=== PATIENT | female | born 1970 | race Caucasian/White ===

== ENCOUNTER 2018-01-08 06:34 | Day surgery (SDC) | payer MEDICAID ==
[2018-01-08 07:09] LABS: ADD MAN DIFF? NO
[2018-01-08 07:11] LABS: BASOPHILS % 0.3 % (0.0-2.0); EOSINOPHILS # 0.2 10^3/ul (0.0-0.5); EOSINOPHILS % 1.9 % (0.0-7.0); HEMATOCRIT 34.1 % (37.0-47.0); HEMOGLOBIN 11.4 g/dl (12.0-16.0); LYMPHOCYTES # 2.9 10^3/ul (0.8-2.9); LYMPHOCYTES % 33.5 % (15.0-51.0); MEAN CORPUSCULAR HEMOGLOBIN 28.6 pg (29.0-33.0); MEAN CORPUSCULAR HGB CONC 33.4 g/dl (32.0-37.0); MEAN CORPUSCULAR VOLUME 85.5 fl (82.0-101.0); MEAN PLATELET VOLUME 9.9 fl (7.4-10.4); MONOCYTE # 0.7 10^3/ul (0.3-0.9); MONOCYTES % 7.8 % (0.0-11.0); NEUTROPHIL # 4.9 10^3/ul (1.6-7.5); NEUTROPHILS % 56.2 % (39.0-77.0); PLATELET COUNT 295 10^3/UL (140-415); RED BLOOD COUNT 3.99 10^6/ul (4.20-5.40); RED CELL DISTRIBUTION WIDTH 12.5 % (11.5-14.5)
[2018-01-08 07:11] LABS: WHITE BLOOD COUNT 8.7 10^3/ul (4.8-10.8)
[2018-01-08] MEDS ORDERED: HYDROmorphONE 1 MG/5 ML IV SYRINGE IV ×3 (07:30)
[2018-01-08] MEDS ORDERED: DIPHENHYDRAMINE 50 MG INJ IV (07:30)
[2018-01-08] MEDS ORDERED: METOCLOPRAMIDE 10 MG INJ IV (07:30)
[2018-01-08] MEDS ORDERED: FENTAnyl 50 MCG/ML VIAL IV ×2 (07:30)
[2018-01-08] MEDS ORDERED: ALBUTEROL 0.083% (NEB) 2.5 MG/3 ML AMP HHN (07:30)
[2018-01-08 07:31] LABS: INR 0.94; PROTIME 12.7 Sec (11.9-14.9)
[2018-01-08] MEDS ORDERED: BUPIVACAINE 0.25%/EPI (MDV) 50 ML VIAL INJ (07:33)
[2018-01-08] MEDS ORDERED: FENTAnyl 50 MCG/ML VIAL (07:45)
[2018-01-08] MEDS ORDERED: ROPIVACAINE 0.5 % 30 ML VIAL (07:45)
[2018-01-08] MEDS ORDERED: CEFAZOLIN 1 GM INJ (08:10)
[2018-01-08] MEDS ORDERED: SUCCINYLCHOLINE CHLORIDE 100 MG/5 ML SYG IV (08:10)
[2018-01-08] MEDS ORDERED: SUGAMMADEX SODIUM 200 MG/2 ML VIAL IV (08:10)
[2018-01-08] MEDS ORDERED: LIDOCAINE 100 MG SYRINGE (08:10)
[2018-01-08] MEDS ORDERED: PROPOFOL 20 ML (08:10)
[2018-01-08] MEDS ORDERED: ROCURONIUM 50 MG INJ (08:10)
[2018-01-08] MEDS ORDERED: LACTATED RINGER'S 1,000 ML IV* (09:30)
[2018-01-08] MEDS: ONDANSETRON 4 MG INJ IV (09:46)
[2018-01-08] MEDS: MEPERIDINE 25 MG INJ IV (09:52)
== END 2018-01-08 10:54 | disposition home or self-care (01) ==
LOC: SDS 06:34
DX: Z30.2 Encounter for sterilization (principal)
CPT/HCPCS: 58670; 85025; 85610; 85730; 93005